=== PATIENT | male | born 1995 ===

== ENCOUNTER 2023-04-03 09:09 | Day surgery (SDC) | payer OTHER ==
[2023-04-03] VITALS (15 sets, daily range): BP systolic 99–121; BP diastolic 51–75
[~2023-04-03] VITALS: Ht 159 cm; Wt 72.7 kg
[~2023-04-03 09:09] MED LIST: Ativan1 MG PO; BENZ1 PO; CLON.2 PO; KETO15TC TOP; RISP1 PO; Triamcinolone A15 G3 TOP
--- NOTE | 2023-04-03 14:08 | NUR ---
IV'S REMOVED IN STEP. WNL. PT CALM/COOPERATIVE. DENIES PAIN. FAMILY AT BEDSIDE.
--- NOTE | 2023-04-03 15:30 | NUR ---
PT UP TO W/C WITH ASSIST. Discharge instructions reviewed with patient/FAMILY. Patient/FAMILY verbalizes understanding. Copy given to FAMILY to take home,SEE PT'S HX (DOWN'S SYNDROME). Patient/FAMILY States Post-Procedure ride home has been arranged. Discharged via wheelchair to private car for ride home WITH FAMILIY, REPORTS HAVING PAPERWORK THAT OTHER RN WENT OVER WITH FAMILY. FAMILY REPORTS HAVING ASSISTANCE AT HOME. PT TOLERATING PO. GROIN SITE WNL,SOFT,NON-TENDER.
== END 2023-04-03 15:30 | disposition home or self-care (01) ==
LOC: ORSCMMR 09:09 → ORD 10:30 → ORSCMMR 10:30
PROVIDERS: Surgery
PROC: 0YU50JZ Supplement Right Inguinal Region with Synthetic Substitute, Open Approach (ICD-10-PCS; principal; 2023-04-03 10:30)
DX: K40.30 Unilateral inguinal hernia, with obstruction, without gangrene, not specified as recurrent (principal); Q90.9 Down syndrome, unspecified; F84.0 Autistic disorder; Z79.899 Other long term (current) drug therapy
CPT/HCPCS: A9270; C1781; J0690; J1100; J2405; J2704; J3010; J7120